=== PATIENT | male | born 1940 | race Caucasian/White ===

== ENCOUNTER 2016-07-04 12:04 | Emergency (ER) | payer OTHER, MEDICARE ==
[~2016-07-04] VITALS: Ht 172.7 cm; Wt 90.0 kg
[~2016-07-04 12:04] MED LIST: ATOR-26 PO; CHOLTAB3 PO; CYCL10TA6 PO; OMEG10007 PO; PLV75 PO
[2016-07-04 12:09] VITALS: TEMP 36.8; Ht 172.7 cm; Wt 90.0 kg
[2016-07-04] MEDS ORDERED: OXYMETAZOLINE HCL 0.05% NA SPR 15 ML BTL ONE (12:45)
[2016-07-04 13:12] LABS: BUN/CREATININE RATIO 13.1 (10-20); CALCIUM 9.3 mg/dl (8.5-10.1); CREATININE 1.9 mg/dl (0.60-1.40); POTASSIUM 4.3 mmol/L (3.5-5.1)
[2016-07-04 13:18] LABS: HEMATOCRIT 38.9 % (42-52); MEAN CELL VOLUME 89.4 fL (80-100); MEAN CORPUSCULAR HEMOGLOBIN 30.1 pg (25-34); MEAN CORPUSCULAR HGB CONC 33.7 g/dl (32-36); PLATELET COUNT 47 K/uL (130-400); RED BLOOD COUNT 4.35 M/uL (4.7-6.1); WHITE BLOOD COUNT 8.97 K/uL (4.8-10.8)
[2016-07-04 13:19] LABS: COMPLETE YES; EOSINOPHIL % 0.9 %; LYMPH ABS # 2.02 K/uL (1.2-3.4); LYMPHOCYTE % 22.5 %; META ABS # 0.32 K/uL (0-0); METAMYELOCYTE % 3.6 %; NEUTROPHILS % 49.6 %; PLT ESTIMATE DECREASED
[2016-07-04] MEDS ORDERED: SILVER NITR/POTASSIUM NITRATE APPLICATOR EXT STA (13:55)
--- NOTE | 2016-07-04 14:05 | EMERGENCY ROOM VISIT NOTE ---
History First contact with patient: 12:22 Chief Complaint: NOSE BLEED (MINOR) Stated Complaint: NOSE BLEED History of Present Illness The patient is a 75 year old male who presents to the Emergency Room with complaints of intermittent nosebleeds for the past one month. The patient states that he has had nosebleeds from both of his nares off and on for the past one month. He takes Plavix. He has a history of chronic lymphocytic leukemia. He has been using a humidifier and saline spray without relief. The patient saw his negative notcher and they told him to begin using Vaseline on the nose. He states that he has been doing this for one day. He denies any pain. He denies a history of nosebleeds. He denies any blood running down the throat. Review of Systems A complete 10-point Review of Systems was discussed with the patient, with pertinent positives and negatives listed in the History of Present Illness. All remaining Review of Systems questions can be considered negative unless otherwise specified. Past Medical/Surgical History Medical Problems: (1) Aortic stenosis (2) Carotid arterial disease (3) Dyslipidemia (4) Factor 5 Leiden mutation, heterozygous Family History FH: factor V Leiden mutation Social History Smoking Status: Former Smoker Drug Use: none Marital Status: Housing Status: lives with family Occupation Status: retired Current/Historical Medications Scheduled Atorvastatin (Lipitor), 80 MG PO DAILY Calcium Polycarbophil (Fiber-Caps), 1 CAP PO DAILY Cholecalciferol (Vitamin D3), 1 TAB PO DAILY Clopidogrel Bisulfate (Clopidogrel), 75 MG PO DAILY Montelukast Sodium (Montelukast Sodium), 1 TAB PO DAILY Multivitamin (Multivitamin), 1 TAB PO DAILY Ocuvite Preservision (Ocuvite Preservision), 1 TAB PO BID Allergies Coded Allergies: No Known Allergies (Unverified , 07/04/16) Physical Exam Vital Signs Date Time Temp Pulse Resp B/P Pulse Ox O2 Delivery O2 Flow Rate FiO2 07/04/16 14:13 65 20 172/78 97 07/04/16 13:00 60 20 167/68 98 Room Air 07/04/16 12:09 36.8 78 20 205/99 96 Room Air Physical Exam VITALS: Vitals are noted on the nurse's note and reviewed by myself. Vital signs stable. GENERAL: This is a 75-year-old male, in no acute distress, nondiaphoretic, well- developed well-nourished. SKIN: The skin was without rashes. No petechiae or bruising. EARS: External auditory canals clear, tympanic membranes pearly jackson without erythema or effusion bilaterally. EYES: Pupils equal round and reactive to light and accommodation. NOSE: There is a minimal amount of bleeding from Kiesselbach's plexus of the left nare. MOUTH: Mucous membranes moist. No blood in the posterior oropharynx. NECK: Supple without nuchal rigidity. No lymphadenopathy. HEART: Regular rate and rhythm without murmurs gallops or rubs. LUNGS: Clear to auscultation bilaterally without wheezes, rales or rhonchi. NEURO: Patient was alert and oriented to person place and time. Medical Decision & Procedures Laboratory Results 07/04/16 12:45 Red Blood Count 4.35, Mean Corpuscular Volume 89.4, Mean Corpuscular Hemoglobin 30.1, Mean Corpuscular Hemoglobin Concent 33.7, Mean Platelet Volume 12.0 07/04/16 12:45 Test 07/04/16 12:45 White Blood Count 8.97 K/uL (4.8-10.8) Red Blood Count 4.35 M/uL (4.7-6.1) Hemoglobin 13.1 g/dL (14.0-18.0) Hematocrit 38.9 % (42-52) Mean Corpuscular Volume 89.4 fL (80-100) Mean Corpuscular Hemoglobin 30.1 pg (25-34) Mean Corpuscular Hemoglobin Concent 33.7 g/dl (32-36) Platelet Count 47 K/uL (130-400) Mean Platelet Volume 12.0 fL (7.4-10.4) RDW Standard Deviation 46.4 fL (36.4-46.3) RDW Coefficient of Variation 14.1 % (11.5-14.5) Neutrophils % (Manual) 49.6 % Lymphocytes % (Manual) 22.5 % Monocytes % (Manual) 23.4 % Eosinophils % (Manual) 0.9 % Metamyelocytes % 3.6 % Neutrophils # (Manual) 4.45 K/uL (1.4-6.5) Total Absolute Neutrophils 4.45 K/uL (1.4-6.5) Lymphocytes # (Manual) 2.02 K/uL (1.2-3.4) Total Absolute Lymphocytes 2.02 K/uL (1.2-3.4) Monocytes # (Manual) 2.10 K/uL (0.11-0.59) Eosinophils # (Manual) 0.08 K/uL (0-0.5) Metamyelocytes # 0.32 K/uL (0-0) Platelet Estimate DECREASED Anion Gap 8.0 mmol/L (3-11) Est Creatinine Clear Calc Drug Dose 36.0 ml/min Estimated GFR () 38.8 Estimated GFR (Non- 33.5 BUN/Creatinine Ratio 13.1 (10-20) Calcium Level 9.3 mg/dl (8.5-10.1) Medications Administered Medications (Trade) Dose Ordered Sig/Valerie Route Start Time Stop Time Status Last Admin Dose Admin Oxymetazoline HCl (Afrin 0.05% Nasal Busy) 1 sprays NOW ONCE NA 07/04/16 12:45 07/04/16 12:47 DC 07/04/16 12:53 1 SPRAYS Silver Nitrate/ Potassium Nitrate (Silver Nitrate Applicators) 1 pkt NOW STAT EXT 07/04/16 13:55 07/04/16 13:56 DC 07/04/16 13:55 1 PKT Medical Decision Differential diagnosis includes epistaxis, thrombocytopenia, anemia, among others. The patient is a 75-year-old male who presents today complaining of a nosebleed. I was able to obtain records from his last PCP visit. Labs revealed a platelet count of 47, which is the same as his last count. Creatinine is 1.9 which appears to be baseline. Patient has only minimal bleeding from his left nare on my exam. Cauterization was performed with silver nitrate. Patient was instructed to follow up with ENT. The patient was independently evaluated by Dr. Workman, ED attending physician , who agreed with my assessment and treatment plan. Based on the patient's presentation and work up, I feel the patient is stable for outpatient treatment. The patient was educated to the emergency department for any worsening of their current condition or new/concerning symptoms. Impression Primary Impression: Anterior epistaxis Departure Information Dispostion Home / Self-Care Condition GOOD Referrals Sharad Molina PA-C (PCP) Kei Craig D.O. Patient Instructions My [facility] Additional Instructions Continue the nasal spray you have been using at home. Follow-up with ENT and your primary care provider. Return to the emergency department with any new/concerning symptoms or persistent nosebleeds.
[2016-07-04 14:13] VITALS: BP 172/78; PULSE 65; O2SAT 97
--- NOTE | 2016-07-05 20:08 | EMERGENCY ROOM VISIT NOTE ---
ED Visit Note First contact with patient: 14:12 I have seen and examined this patient with Valeria Carson and generally agree with the treatment plan as discussed.
[2016-07-12] MEDS ORDERED: CHOL1000 PO (12:20)
[2016-07-12] MEDS ORDERED: MULT-506 PO (12:23)
[2016-07-12] MEDS ORDERED: MONT1TAB5 PO (12:23)
[2016-07-12] MEDS ORDERED: CALC-496 PO (12:25)
[2016-07-12] MEDS ORDERED: MULT-190 PO (12:27)
[2016-07-12] MEDS ORDERED: CLOP1TAB15 PO (14:54)
[2016-07-12] MEDS ORDERED: ATOR-26 PO (14:54)
== END 2016-07-04 14:14 | disposition home or self-care (01) ==
LOC: C.EDB 12:06 → C.EDA 14:14
DX: R04.0 Epistaxis (principal); Z85.6 Personal history of leukemia; Z82.49 Family history of ischemic heart disease and other diseases of the circulatory system; E78.5 Hyperlipidemia, unspecified; D68.51 Activated protein C resistance; Z87.891 Personal history of nicotine dependence; Z79.02 Long term (current) use of antithrombotics/antiplatelets; Z79.899 Other long term (current) drug therapy

== ENCOUNTER 2016-07-05 10:09 | Emergency (ER) | payer OTHER, MEDICARE ==
[~2016-07-05] VITALS: Ht 172.7 cm; Wt 89.5 kg
[~2016-07-05 10:09] MED LIST changes: -CHOLTAB3 PO; -CYCL10TA6 PO; -OMEG10007 PO
[2016-07-05 10:14] VITALS: TEMP 36.6; Ht 172.7 cm; Wt 89.5 kg
[2016-07-05] MEDS ORDERED: SILVER NITR/POTASSIUM NITRATE APPLICATOR ONE (10:55)
[2016-07-05 11:42] VITALS: BP 196/69; PULSE 60; O2SAT 98
--- NOTE | 2016-07-05 11:47 | EMERGENCY ROOM VISIT NOTE ---
History Report prepared by Nina: Pavithra Louis Under the Supervision of: Dr. Eugenio Penny D.O. First contact with patient: 10:43 Chief Complaint: NOSE BLEED (MINOR) Stated Complaint: NOSE BLEED History of Present Illness The patient is a 75 year old male who presents to the Emergency Room with complaints of a persistent nose bleed that began around 0800 this morning. The patient states that he is on Plavix. He states that he has had previous nose bleeds. The patient states that around 0800 his nose began bleeding, stating that it was "like a faucet." He states that his nose persistently continued bleeding until 1010 this morning. The patient denies any trauma to his nose. The patient's notes that the patient had his nose cauterized yesterday while in the emergency department. Source of History: patient, spouse/significant other () Onset: 0800 this morning Position: nose Quality: other (bleed) Timing: other (persistent) Review of Systems See HPI for pertinent positives & negatives. A total of 10 systems reviewed and were otherwise negative. Past Medical & Surgical Medical Problems: (1) Aortic stenosis (2) Carotid arterial disease (3) Dyslipidemia (4) Factor 5 Leiden mutation, heterozygous Family History FH: factor V Leiden mutation Social History Smoking Status: Never Smoker Drug Use: none Marital Status: Housing Status: lives with family Occupation Status: retired Current/Historical Medications Scheduled Atorvastatin (Lipitor), 80 MG PO DAILY Calcium Polycarbophil (Fiber-Caps), 1 CAP PO DAILY Cholecalciferol (Vitamin D3), 1 TAB PO DAILY Clopidogrel Bisulfate (Clopidogrel), 75 MG PO DAILY Montelukast Sodium (Montelukast Sodium), 1 TAB PO DAILY Multivitamin (Multivitamin), 1 TAB PO DAILY Ocuvite Preservision (Ocuvite Preservision), 1 TAB PO BID Allergies Coded Allergies: No Known Allergies (Unverified , 07/05/16) Physical Exam Vital Signs Date Time Temp Pulse Resp B/P Pulse Ox O2 Delivery O2 Flow Rate FiO2 07/05/16 11:42 60 17 196/69 98 Room Air 07/05/16 10:14 36.6 66 18 188/61 98 Room Air Physical Exam CONSTITUTIONAL/VITAL SIGNS: Reviewed / noted above. GENERAL: Non-toxic in appearance. INTEGUMENTARY: Warm, dry, and [place]. HEAD: Normocephalic. EYES: without scleral icterus or trauma. ENT/OROPHARYNX: Dry blood in left anterior septum, naris, no active bleeding appreciated, no bleeding in posterior oropharynx. LYMPHADENOPATHY/NECK: Is supple without lymphadenopathy or meningismus. RESPIRATORY: Lungs clear and equal. CARDIOVASCULAR: Regular rate and rhythm. GI/ABDOMEN: Soft and nontender. No organomegaly or pulsatile mass. No rebound or guarding. Normal bowel sounds. EXTREMITIES: Warm and well perfused. BACK: No CVA tenderness. NEUROLOGICAL: Intact without focal deficits. PSYCHIATRIC: normal affect. MUSCULOSKELETAL: Normally developed with good muscle tone. Medical Decision & Procedures ED Course 1044: Previous medical records were reviewed. The patient was evaluated in room C4. A complete history and physical examination was performed. 1050: I cauterized the patient's nose at this time. I discussed all the exam findings with him and I discussed the treatment plan. He verbalized complete understanding and agreement. He is ready to go home shortly. Medical Decision Differential diagnosis: Etiologies such as anterior epistaxis, coagulopathy, traumatic injury, fracture , septal hematoma, posterior epistaxis as well as other pathologies were entertained. This is a 75-year-old male who presents to the ED with a chief complaint of a nosebleed. The patient states that his left nose was bleeding from 8 until 10 AM. He denied any trauma. He was seen here yesterday and had silver nitrate cautery to the anterior septum. The patient has no active bleeding at the time of the exam. There appears to have been some recent bleeding from the site near were was cauterized. The scab appears to be missing. Additionally cautery was performed using silver nitrate. No additional bleeding was appreciated. The patient was told to use his nasal compression device should he have any additional bleeding. He was felt to be stable for discharge. He is on Plavix. Impression Primary Impression: Anterior epistaxis Scribe Attestation The scribe's documentation has been prepared under my direction and personally reviewed by me in its entirety. I confirm that the note above accurately reflects all work, treatment, procedures, and medical decision making performed by me. Departure Information Referrals No Doctor, Assigned (PCP) Patient Instructions My [facility]
[2016-07-12] MEDS ORDERED: CHOL1000 PO (12:20)
[2016-07-12] MEDS ORDERED: MULT-506 PO (12:23)
[2016-07-12] MEDS ORDERED: MONT1TAB5 PO (12:23)
[2016-07-12] MEDS ORDERED: CALC-496 PO (12:25)
[2016-07-12] MEDS ORDERED: MULT-190 PO (12:27)
[2016-07-12] MEDS ORDERED: ATOR-26 PO (14:54)
[2016-07-12] MEDS ORDERED: CLOP1TAB15 PO (14:54)
== END 2016-07-05 11:53 | disposition home or self-care (01) ==
LOC: C.EDB 10:10 → C.EDC 11:53
DX: R04.0 Epistaxis (principal); Z79.02 Long term (current) use of antithrombotics/antiplatelets; I35.0 Nonrheumatic aortic (valve) stenosis; I25.10 Atherosclerotic heart disease of native coronary artery without angina pectoris; E78.5 Hyperlipidemia, unspecified; D68.51 Activated protein C resistance; Z79.899 Other long term (current) drug therapy

== ENCOUNTER 2016-08-02 13:27 | Emergency (ER) | payer OTHER, MEDICARE ==
[~2016-08-02] VITALS: Ht 172.7 cm; Wt 89.5 kg
[~2016-08-02 13:27] MED LIST changes: +CALC-496 PO; +CHOL1000 PO; +CLOP1TAB15 PO; +MONT1TAB5 PO; +MULT-190 PO; +MULT-506 PO; -PLV75 PO
[2016-08-02 13:36] VITALS: Ht 172.7 cm; Wt 89.5 kg
[2016-08-02] MEDS ORDERED: ONDANSETRON INJ 2 MG/ML 2 ML VIAL IV STA (15:10)
[2016-08-02] MEDS ORDERED: HYDROmorphone INJ 1 MG/ML SYR IV PRN (15:15)
[2016-08-02 15:42] LABS: URINE APPEARANCE CLEAR (CLEAR); URINE BILIRUBIN NEG (NEG); URINE COLOR YELLOW; URINE NITRITE NEG (NEG); URINE SPECIFIC GRAVITY 1.022 (1.000-1.030); UROBILINOGEN NEG (NEG)
[2016-08-02 15:43] LABS: MANUAL MICROSCOPIC REQUIRED? NO; REVIEW REQ? NO
--- NOTE | 2016-08-02 16:10 | DIAGNOSTIC IMAGING REPORT ---
CT OF THE ABDOMEN AND PELVIS WITHOUT CONTRAST, STONE PROTOCOL CLINICAL HISTORY: Left flank pain. Hematuria. Back pain. COMPARISON STUDY: None. TECHNIQUE: Helical axial images of the abdomen and pelvis were obtained without IV or oral contrast according to renal stone protocol. FINDINGS: Lung bases are clear. The patient is status post right nephrectomy. A 2 x 1 cm water attenuation abnormality within the nephrectomy bed is likely benign. A 7 mm suspected hepatic cyst is present within the caudate lobe. The spleen, left adrenal gland and pancreas are normal. There is no left hydronephrosis. No left renal, ureteral calculi are present. The prostate is mildly enlarged. There is a 2.6 cm diverticulum arising from the right aspect of the bladder. There is colonic diverticulosis without evidence for acute diverticulitis. There is no lymphadenopathy. The appendix is normal. No suspicious skeletal lesions are identified. There is no evidence for a bowel obstruction. IMPRESSION: 1. No urinary calculi or hydronephrosis. 2. Status post right nephrectomy. 2 x 1 cm water attenuation focus within the right nephrectomy bed is likely benign but can be assessed on subsequent studies to ensure stability. 3. Colon diverticulosis without evidence for acute diverticulitis. 4. Mild bladder wall thickening, likely chronic. Electronically signed by: Adeel Thomson M.D. 08/02/2016 4:09 PM Dictated Date/Time: 08/02/2016 3:58 PM
[2016-08-02 16:21] LABS: BUN/CREATININE RATIO 12.4 (10-20); CALCIUM 8.8 mg/dl (8.5-10.1); CREATININE 1.8 mg/dl (0.60-1.40); POTASSIUM 4.2 mmol/L (3.5-5.1)
[2016-08-02 16:43] LABS: HEMATOCRIT 37.6 % (42-52); MEAN CELL VOLUME 89.7 fL (80-100); MEAN CORPUSCULAR HEMOGLOBIN 29.6 pg (25-34); MEAN PLATELET VOLUME 12.1 fL (7.4-10.4); PLATELET COUNT 41 K/uL (130-400); RED BLOOD COUNT 4.19 M/uL (4.7-6.1); WHITE BLOOD COUNT 9.25 K/uL (4.8-10.8)
[2016-08-02 17:31] LABS: COMPLETE YES; EOSINOPHIL % 0.9 %; LYMPH ABS # 2.41 K/uL (1.2-3.4); LYMPHOCYTE % 26.1 %
--- NOTE | 2016-08-02 20:48 | DIAGNOSTIC IMAGING REPORT ---
MRI OF THE LUMBAR SPINE WITHOUT CONTRAST CLINICAL HISTORY: Left upper lumbar pain. Thrombocytopenia. COMPARISON STUDY: No previous studies for comparison. TECHNIQUE: Utilizing a 1.5 Stephani magnet and dedicated coil, multiplanar, multiecho imaging of the lumbar spine was performed without IV contrast. FINDINGS: For purposes of numbering on this exam, the L5-S1 disc space is assigned to axial image 27 of 30. Alignment of lumbar spine is anatomic. Vertebral body heights are maintained. There is no intracanalicular mass or fluid collection. Conus terminates at the mid L1 level. The patient is status post right nephrectomy. This is better depicted on the abdominal CT. An 8 mm T1 and T2 hyperintense L1 vertebral body lesion represents a hemangioma. L1-2: Central canal and neural foramen are patent. L2-3: There is mild facet arthrosis. The central canal and neural foramen are patent. L3-4: There is mild facet arthrosis. The central canal and neural foramen are patent. L4-5: There is disc space narrowing with disc bulge and a small central disc protrusion with facet arthrosis. There is minimal narrowing of the central canal and lateral recesses. The neural foramen are patent. L5-S1: There is disc space narrowing with disc bulge and a small central disc protrusion. There is facet arthrosis. The central canal is patent. There is mild narrowing of both neural foramen. IMPRESSION: 1. Mild multilevel degenerative disc disease and facet arthrosis of the lumbar spine with mild central canal stenosis at L4-L5 and mild bilateral neural foraminal stenosis at L5-S1. 2. No acute abnormality within the lumbar spine by MRI. 3. No evidence of metastatic disease within the lumbar spine. Electronically signed by: Adeel Thomson M.D. 08/02/2016 8:47 PM Dictated Date/Time: 08/02/2016 8:40 PM
[2016-08-02] MEDS ORDERED: OXYC1TAB3 PO (21:16)
[2016-08-02 21:30] VITALS: BP 131/55; PULSE 52; TEMP 36.4; O2SAT 95
[2016-08-02] MEDS ORDERED: OXYCODONE IR HOME PACK PO ONE (21:30)
--- NOTE | 2016-08-03 01:50 | EMERGENCY ROOM VISIT NOTE ---
History Report prepared by Nina: Pavithra Louis Under the Supervision of: Dr. Armand Galloway M.D. First contact with patient: 15:05 Chief Complaint: BACK PAIN Stated Complaint: BACK PAIN History of Present Illness The patient is a 75 year old male who presents to the Emergency Room with complaints of persistent left flank pain that began a few days ago. He currently rates his discomfort as a 9/10 in severity. The patient denies any heavy lifting, pulling, twisting, or recent trauma. This started a few days ago and is constant. The patient has tried Maynard 7.5mg as relieving factors, but denies any relief. He has been dealing with nosebleeds, stating that his most recent was July 18. The patient states that he stopped taking Plavix on July 14. The patient states that he has a history of aortic stenosis, right nephrectomy, and right renal carcinoma. Pt denies LOC, headache, fevers, chills , diaphoresis, visual changes, neck pain, chest pain, breathing difficulties, nausea, vomiting, abdominal pain, melena, hematochezia, urinary symptoms, numbness, weakness, lymphadenopathy, rash, loss of control or bowel or bladder, or other complaints. Source of History: patient Onset: few dasy ago Position: other (left flank) Symptom Intensity: 9/10 Timing: other (persistent) Note: Denies any recent trauma, heavy lifting, pulling, or twisting Review of Systems See HPI for pertinent positives and negatives. A total of ten systems were reviewed and were otherwise negative. Past Medical & Surgical Medical Problems: (1) Aortic stenosis (2) Carotid arterial disease (3) Dyslipidemia (4) Factor 5 Leiden mutation, heterozygous Family History FH: factor V Leiden mutation Social History Smoking Status: Former Smoker Drug Use: none Marital Status: Housing Status: lives with family Occupation Status: retired Current/Historical Medications Scheduled Atorvastatin (Lipitor), 80 MG PO DAILY Calcium Polycarbophil (Fiber-Caps), 625 MG PO DAILY Cholecalciferol (Vitamin D3), 1,000 INTER.UNIT PO DAILY Clopidogrel (Plavix), 75 MG PO DAILY Montelukast Sodium (Montelukast Sodium), 10 MG PO DAILY Ocuvite Preservision (Ocuvite Preservision), 1 TAB PO BID Scheduled PRN Oxycodone Ir (Roxicodone Ir), 1-2 TAB PO Q4H PRN for Pain Allergies Coded Allergies: No Known Allergies (Unverified , 08/02/16) Physical Exam Vital Signs Date Time Temp Pulse Resp B/P Pulse Ox O2 Delivery O2 Flow Rate FiO2 08/02/16 21:30 36.4 52 18 131/55 95 08/02/16 21:09 52 18 131/55 95 Room Air 08/02/16 18:36 52 08/02/16 18:30 53 18 137/54 95 Room Air 08/02/16 17:47 56 20 139/52 95 Room Air 08/02/16 16:21 67 18 136/65 96 08/02/16 15:35 77 16 137/59 96 Room Air 08/02/16 14:15 69 08/02/16 14:07 54 16 165/62 95 Room Air 08/02/16 13:36 36.4 92 20 96 Room Air Physical Exam GENERAL: Awake, alert, well-appearing, in no distress HENT: Normocephalic, atraumatic. Oropharynx unremarkable. EYES: Normal conjunctiva. Sclera non-icteric. NECK: Supple. No nuchal rigidity. FROM. No JVD. RESPIRATORY: Clear to auscultation. CARDIAC: Systolic ejection murmur. Regular rate, normal rhythm. Extremities warm and well perfused. Pulses equal. ABDOMEN: Soft, non-distended. No tenderness to palpation. No rebound or guarding. No masses. RECTAL: Deferred. MUSCULOSKELETAL: Chest examination reveals no tenderness. The back is symmetrical on inspection without obvious abnormality. There is left CVA tenderness to palpation. Left lower rib tenderness. No joint edema. LOWER EXTREMITIES: Calves are equal size bilaterally and non-tender. No edema. No discoloration. NEURO: Normal sensorium. No sensory or motor deficits noted. No Saddle Anesthesia. Resting tremor. SKIN: No rash or jaundice noted. Medical Decision & Procedures ER Provider Diagnostic Interpretation: Radiology results as stated below per my review and radiologist interpretation: CT OF THE ABDOMEN AND PELVIS WITHOUT CONTRAST, STONE PROTOCOL CLINICAL HISTORY: Left flank pain. Hematuria. Back pain. COMPARISON STUDY: None. TECHNIQUE: Helical axial images of the abdomen and pelvis were obtained without IV or oral contrast according to renal stone protocol. FINDINGS: Lung bases are clear. The patient is status post right nephrectomy. A 2 x 1 cm water attenuation abnormality within the nephrectomy bed is likely benign. A 7 mm suspected hepatic cyst is present within the caudate lobe. The spleen, left adrenal gland and pancreas are normal. There is no left hydronephrosis. No left renal, ureteral calculi are present. The prostate is mildly enlarged. There is a 2.6 cm diverticulum arising from the right aspect of the bladder. There is colonic diverticulosis without evidence for acute diverticulitis. There is no lymphadenopathy. The appendix is normal. No suspicious skeletal lesions are identified. There is no evidence for a bowel obstruction. IMPRESSION: 1. No urinary calculi or hydronephrosis. 2. Status post right nephrectomy. 2 x 1 cm water attenuation focus within the right nephrectomy bed is likely benign but can be assessed on subsequent studies to ensure stability. 3. Colon diverticulosis without evidence for acute diverticulitis. 4. Mild bladder wall thickening, likely chronic. Electronically signed by: Adeel Thomson M.D. 08/02/2016 4:09 PM Dictated Date/Time: 08/02/2016 3:58 PM MRI OF THE LUMBAR SPINE WITHOUT CONTRAST CLINICAL HISTORY: Left upper lumbar pain. Thrombocytopenia. COMPARISON STUDY: No previous studies for comparison. TECHNIQUE: Utilizing a 1.5 Stephani magnet and dedicated coil, multiplanar, multiecho imaging of the lumbar spine was performed without IV contrast. FINDINGS: For purposes of numbering on this exam, the L5-S1 disc space is assigned to axial image 27 of 30. Alignment of lumbar spine is anatomic. Vertebral body heights are maintained. There is no intracanalicular mass or fluid collection. Conus terminates at the mid L1 level. The patient is status post right nephrectomy. This is better depicted on the abdominal CT. An 8 mm T1 and T2 hyperintense L1 vertebral body lesion represents a hemangioma. L1-2: Central canal and neural foramen are patent. L2-3: There is mild facet arthrosis. The central canal and neural foramen are patent. L3-4: There is mild facet arthrosis. The central canal and neural foramen are patent. L4-5: There is disc space narrowing with disc bulge and a small central disc protrusion with facet arthrosis. There is minimal narrowing of the central canal and lateral recesses. The neural foramen are patent. L5-S1: There is disc space narrowing with disc bulge and a small central disc protrusion. There is facet arthrosis. The central canal is patent. There is mild narrowing of both neural foramen. IMPRESSION: 1. Mild multilevel degenerative disc disease and facet arthrosis of the lumbar spine with mild central canal stenosis at L4-L5 and mild bilateral neural foraminal stenosis at L5-S1. 2. No acute abnormality within the lumbar spine by MRI. 3. No evidence of metastatic disease within the lumbar spine. Electronically signed by: Adeel Thomson M.D. 08/02/2016 8:47 PM Dictated Date/Time: 08/02/2016 8:40 PM Laboratory Results 08/02/16 15:34 Red Blood Count 4.19, Mean Corpuscular Volume 89.7, Mean Corpuscular Hemoglobin 29.6, Mean Corpuscular Hemoglobin Concent 33.0, Mean Platelet Volume 12.1 08/02/16 15:34 Test 08/02/16 14:03 08/02/16 15:34 Urine Color YELLOW Urine Appearance CLEAR (CLEAR) Urine pH 5.0 (4.5-7.5) Urine Specific [place] 1.022 (1.000-1.030) Urine Protein 1+ (NEG) Urine Glucose (UA) NEG (NEG) Urine Ketones NEG (NEG) Urine Occult Blood NEG (NEG) Urine Nitrite NEG (NEG) Urine Bilirubin NEG (NEG) Urine Urobilinogen NEG (NEG) Urine Leukocyte Esterase TRACE (NEG) Urine WBC (Auto) 1-5 /hpf (0-5) Urine RBC (Auto) 0-4 /hpf (0-4) Urine Hyaline Casts (Auto) 5-10 /lpf (0-5) Urine Epithelial Cells (Auto) 10-20 /lpf (0-5) Urine Bacteria (Auto) NEG (NEG) White Blood Count 9.25 K/uL (4.8-10.8) Red Blood Count 4.19 M/uL (4.7-6.1) Hemoglobin 12.4 g/dL (14.0-18.0) Hematocrit 37.6 % (42-52) Mean Corpuscular Volume 89.7 fL (80-100) Mean Corpuscular Hemoglobin 29.6 pg (25-34) Mean Corpuscular Hemoglobin Concent 33.0 g/dl (32-36) Platelet Count 41 K/uL (130-400) Mean Platelet Volume 12.1 fL (7.4-10.4) RDW Standard Deviation 48.8 fL (36.4-46.3) RDW Coefficient of Variation 14.9 % (11.5-14.5) Neutrophils % (Manual) 53.0 % Lymphocytes % (Manual) 26.1 % Monocytes % (Manual) 20.0 % Eosinophils % (Manual) 0.9 % Neutrophils # (Manual) 4.90 K/uL (1.4-6.5) Total Absolute Neutrophils 4.90 K/uL (1.4-6.5) Lymphocytes # (Manual) 2.41 K/uL (1.2-3.4) Total Absolute Lymphocytes 2.41 K/uL (1.2-3.4) Monocytes # (Manual) 1.85 K/uL (0.11-0.59) Eosinophils # (Manual) 0.08 K/uL (0-0.5) Red Blood Cell Morphology Unremarkable Anion Gap 8.0 mmol/L (3-11) Est Creatinine Clear Calc Drug Dose 37.9 ml/min Estimated GFR () 41.4 Estimated GFR (Non- 35.8 BUN/Creatinine Ratio 12.4 (10-20) Calcium Level 8.8 mg/dl (8.5-10.1) Total Bilirubin 0.7 mg/dl (0.2-1) Direct Bilirubin 0.1 mg/dl (0-0.2) Aspartate Amino Transf (AST/SGOT) 15 U/L (15-37) Alanine Aminotransferase (ALT/SGPT) 26 U/L (12-78) Alkaline Phosphatase 85 U/L (45-117) Total Protein 7.5 gm/dl (6.4-8.2) Albumin 4.4 gm/dl (3.4-5.0) Lipase 468 U/L (73-393) Laboratory results reviewed by me Medications Administered Medications (Trade) Dose Ordered Sig/Valerie Route Start Time Stop Time Status Last Admin Dose Admin Ondansetron HCl (Zofran Inj) 4 mg NOW STAT IV 08/02/16 15:10 08/02/16 15:12 DC 08/02/16 15:35 4 MG Hydromorphone HCl (Dilaudid Inj) 1 mg Q15M PRN IV 08/02/16 15:15 08/02/16 21:52 DC 08/02/16 15:35 1 MG Oxycodone HCl (Roxicodone Immediate Rel 5MG Home Pack) 1 homepack UD ONCE PO 08/02/16 21:30 08/02/16 21:31 DC 08/02/16 21:26 1 HOMEPACK ED Course 1505: The patient was evaluated in room C8. A complete history and physical exam was performed. 1510: Ordered Zofran Inj 4 mg IV. 1514: Ordered Dilaudid Inj 1 mg IV. 1631: I reevaluated the patient and he is doing well. 1708: I reevaluated the patient and he feels comfortable with having an MRI. 2111: I reevaluated the patient and he is resting comfortably. I discussed the exam findings with him and I discussed the treatment plan. He verbalized complete understanding and agreement. He is ready to go home. 2129: Ordered Oxycodone HCl 1 homepack PO. Medical Decision Triage Nursing notes reviewed. The patient's presentation and history were concerning for flank pain. Etiologies such as renal colic, appendicitis, diverticulitis, mesenteric ischemia, aortic pathology, infections, inflammatory bowel disease, PUD, biliary pathology, UTI, as well as others were entertained. The patient was evaluated. He had quite a bit of discomfort in the flank. He has a solitary kidney. The patient was given Dilaudid and Zofran and felt significantly better with this. The patient underwent CT imaging. No evidence of kidney stone or intra-abdominal pathology noted. The patient's blood work revealed that he had thrombocytopenia and anemia. Urinalysis unremarkable. The patient has moderate back pain. He has no saddle anesthesia or bowel or bladder incontinence. Given his Darvocet. Back pain I discussed MR imaging. The patient was comfortable with this. There was some time delay because of a backup in MRI due to volume. The patient was assessed. He was resting comfortably. The patient underwent MR imaging and this revealed degenerative disc disease but no hematoma or significant bony pathology such as malignancy. The patient was reassessed. He was informed of findings. I discussed judicious use of oxycodone. The patient was in agreement. He was given a home pack and a small prescription was sent to his pharmacy. By the evaluation outlined above other emergent etiologies such as those listed in the differential, as well as others, were deemed relatively unlikely. The [] informed about the findings as listed above. All questions were answered and [] pleased with the treatment. Return instructions were outlined and the patient was discharged in stable condition. The patient was referred to [] for follow-up [] for a recheck of the current condition. The chart was completed utilizing [employer] voice recognition software. Grammatical errors, random word insertions, pronoun errors, and incomplete sentences are an occasional consequence of this system due to software limitations, ambient noise, and hardware issues. Any formal questions or concerns about the content, text, or information contained within the body of this dictation should be directly addressed to the physician for clarification. Impression Primary Impression: Left low back pain Additional Impression: Thrombocytopenia Scribe Attestation The scribe's documentation has been prepared under my direction and personally reviewed by me in its entirety. I confirm that the note above accurately reflects all work, treatment, procedures, and medical decision making performed by me. Departure Information Dispostion Home / Self-Care Prescriptions Oxycodone Ir (Roxicodone Ir) 5 Mg Tab 1-2 TAB PO Q4H Y for Pain, #15 TAB Prov: Armand Galloway MD 08/02/16 Referrals Sharad Molina PA-C (PCP) Forms HOME CARE DOCUMENTATION FORM, IMPORTANT VISIT INFORMATION Patient Instructions My [facility] Additional Instructions BACK PAIN/INJURY INSTRUCTIONS: DO NOT drive, drink alcohol, operate machinery, or perform dangerous activities today. You were given medications in the ER that can affect your ability to safely function or operate a vehicle. Oxycodone (OxyIR) 5mg: Take 1-2 pills every four hours for breakthrough pain. Avoid alcohol, operating machinery or dangerous equipment, working on ladders or roofs, DRIVING, or situations where being under the influence may be dangerous. It is recommended to use an [id number] stool softener such as Colace, 100mg twice daily while taking this medication to avoid constipation. Acetaminophen(Tylenol) may be used for fever or pain. Use 1000mg every six hours as needed. Avoid using more than 4000mg in a 24 hour period. This medication can be taken if you need to drive, work, or perform activities which may be dangerous when taking narcotic pain medication. Rest and avoid heavy lifting until your symptoms resolve and then gradually return to full activity. A good rule of thumb is if it hurts your back to perform a certain activity, then it should be avoided until you are healthy again. A heating pad, warm compresses, or a hot shower may help with tight muscles and can be done several times a day as needed. Continue current medications. Return to the ER immediately for any numbness, tingling, severe pain, loss of control of your bowels or bladder, inability to walk, or as needed. Follow up with your primary care physician within 3-5 days for a recheck of your current condition. Problem Qualifiers
== END 2016-08-02 21:34 | disposition home or self-care (01) ==
LOC: C.EDB 13:29 → C.EDC 21:34
DX: M54.5 Low back pain (principal); D69.6 Thrombocytopenia, unspecified; D64.9 Anemia, unspecified; E78.5 Hyperlipidemia, unspecified; D68.2 Hereditary deficiency of other clotting factors; I08.8 Other rheumatic multiple valve diseases; Z87.891 Personal history of nicotine dependence; Z79.899 Other long term (current) drug therapy

== ENCOUNTER → 2016-11-22 | Outpatient (CLI) | payer OTHER, MEDICARE ==
[~2016-11-22] MED LIST changes: -MULT-506 PO; +OXYC1TAB3 PO
[2016-11-22 10:36] LABS: BLOOD UREA NITROGEN 25 mg/dl (7-18); BUN/CREATININE RATIO 13.3 (10-20); CALCIUM 9.2 mg/dl (8.5-10.1); CARBON DIOXIDE 24 mmol/L (21-32); CHLORIDE 109 mmol/L (98-107); GLUCOSE 116 mg/dl (70-99); MAGNESIUM 2.2 mg/dl (1.8-2.4); PHOSPHORUS 2.8 mg/dl (2.5-4.9); POTASSIUM 3.9 mmol/L (3.5-5.1); SODIUM 141 mmol/L (136-145)
[2016-11-22 11:07] LABS: URINE APPEARANCE CLEAR (CLEAR); URINE BILIRUBIN NEG (NEG); URINE COLOR YELLOW; URINE NITRITE NEG (NEG); URINE PH 5.5 (4.5-7.5); URINE SPECIFIC GRAVITY 1.022 (1.000-1.030); UROBILINOGEN NEG (NEG); ZZUR CULT IF INDIC CLEAN CATCH NO
[2016-11-22 11:08] LABS: MANUAL MICROSCOPIC REQUIRED? NO; REVIEW REQ? NO
[2016-11-22 11:23] LABS: URINE PROTIEN/CREAT RATIO 0.4 (0-0.2); URINE TOTAL PROTEIN 69.2 mg/dl (0-11.9)
== END | disposition home or self-care (01) ==
LOC: C.LAB1850 09:06
PROVIDERS: ATTEND Internal Medicine Nephrology
DX: N18.3 Chronic kidney disease, stage 3 (moderate) (principal)